=== PATIENT | male | born 1930 | race Caucasian/White ===

== ENCOUNTER → 2017-04-21 | Outpatient (CLI) | payer MEDICARE, OTHER ==
[~2017-04-21] MED LIST: ASPIRIN E.C. 8181 MG PO; CELEBREX 200MG200 MG PO; CEPHALEXIN500 M1 PO; COZAAR 50MG50 MG/TAB PO; DULCOLAX TAB5 MG PO; DYAZIDE 25 MG-31 CAP PO; FLOMAX 0.40.4 MG/CAP PO; GENTAMICIN180 MG/502 NS; MIRALAX PA17 GM/Dose PO; PRILOSEC 20MG20 MG PO; RYBIX ODT50 MG PO; SINGULAIR 110 MG/TAB PO; THEO-24 20200 MG/CAP PO; TYLENOL 325MG325 MG PO; ULTRAM 50MG TAB50 MG PO; XYZAL5 MG PO; ZOCOR 10MG10 MG PO
== END ==
LOC: COL.VAS 12:46
DX: M79.604 Pain in right leg (principal); R60.1 Generalized edema

== ENCOUNTER 2018-01-24 18:08 | Inpatient (IN) | payer MEDICARE, OTHER ==
[~2018-01-24] VITALS: Ht 167.6 cm; Wt 100.4 kg
[~2018-01-24 18:08] MED LIST changes: +BETAPACE 80MG80 MG PO; +OMNICEF 300MG300 MG PO
[2018-01-25] MEDS ORDERED: COLACE 100100 MG/CAP PO (08:17)
[2018-01-25] MEDS ORDERED: MOBIC 7.5MG7.5 MG PO (08:55)
[2018-01-25 08:59] VITALS: BP 104/55; PULSE 67; TEMP 98
[2018-01-25 09:49] LABS: BASO # 0.1 (0.0-0.2); BASO % 0.6 % (0.0-2.0); EOS # 0.6 (0.0-0.7); EOS % 6.4 % (0-4.0); GRAN # 7.5 (1.4-6.5); GRAN % 75.4 % (42.2-75.2); HEMATOCRIT 37.9 % (42.0-52.0); HEMOGLOBIN 12.4 g/dl (13.5-18.0); LYMPH # 0.9 (1.2-3.4); LYMPH % 8.6 % (20.0-51.0); MEAN CELL VOLUME 86 fl (80.0-100.0); MEAN CORPUSCULAR HEMOGLOBIN 28 pg (27.0-31.0); MEAN CORPUSCULAR HGB CONC 33 g/dl (33.0-37.0); MEAN PLATELET VOLUME 8.6 fl (7.4-10.4); MONO # 0.9 (0.1-0.6); MONO % 8.6 % (1.7-9.3); PLATELET COUNT 483 K/mm3 (130-400); RED BLOOD COUNT 4.39 M/mm3 (4.20-5.60); REDCELL DISTRIBUTION WIDTH-CV 13.9 % (11.5-14.5)
[2018-01-25 09:57] LABS: INR 1.2 (0.8-3.0); PROTHROMBIN TIME 13.3 SECONDS (9.7-12.8)
[2018-01-25 10:03] LABS: BILIRUBIN,TOTAL 0.3 mg/dL (0.0-1.0); CALCIUM 8.8 mg/dL (8.4-10.2); CREATININE, serum 0.96 mg/dL (0.66-1.25); POTASSIUM 3.4 mmol/L (3.4-5.0); TOTAL PROTEIN 6.6 gm/dL (6.4-8.2)
[2018-01-25 12:39] VITALS: BP 143/46; PULSE 64; TEMP 98.4
[2018-01-25] MEDS ORDERED: MIRAPEX0.25 MG PO (14:05)
[2018-01-25 16:50] VITALS: BP 110/54; PULSE 62; TEMP 98.3
[2018-01-25 22:25] VITALS: BP 111/56; PULSE 62; TEMP 98.2
[2018-01-26 03:32] VITALS: BP 117/57; PULSE 68; TEMP 97.9
[2018-01-26 07:12] VITALS: BP 111/76; PULSE 63; TEMP 97.4
[2018-01-26 08:53] LABS: BASO % 0.5 % (0.0-2.0); EOS # 0.7 (0.0-0.7); EOS % 7.6 % (0-4.0); GRAN # 6.7 (1.4-6.5); GRAN % 75.6 % (42.2-75.2); LYMPH # 0.7 (1.2-3.4); LYMPH % 7.6 % (20.0-51.0); MEAN CELL VOLUME 86 fl (80.0-100.0); MEAN CORPUSCULAR HEMOGLOBIN 28 pg (27.0-31.0); MEAN CORPUSCULAR HGB CONC 33 g/dl (33.0-37.0); MEAN PLATELET VOLUME 8.6 fl (7.4-10.4); MONO # 0.7 (0.1-0.6); MONO % 8.2 % (1.7-9.3); PLATELET COUNT 472 K/mm3 (130-400); RED BLOOD COUNT 4.28 M/mm3 (4.20-5.60); REDCELL DISTRIBUTION WIDTH-CV 14.1 % (11.5-14.5)
[2018-01-26 08:54] LABS: HEMATOCRIT 36.7 % (42.0-52.0)
[2018-01-26 09:07] LABS: CALCIUM 8.6 mg/dL (8.4-10.2); CREATININE, serum 0.9 mg/dL (0.66-1.25); MAGNESIUM 1.9 mg/dL (1.6-2.3); POTASSIUM 3.2 mmol/L (3.4-5.0)
[2018-01-26 11:39] VITALS: BP 126/81; PULSE 73; TEMP 98
[2018-01-26 18:23] VITALS: BP 123/58; PULSE 77; TEMP 98.1
[2018-01-26 23:31] VITALS: BP 128/51; PULSE 64
[2018-01-27 04:52] VITALS: BP 123/51; PULSE 64
[2018-01-27 08:52] LABS: BASO # 0.1 (0.0-0.2); BASO % 0.6 % (0.0-2.0); EOS # 0.8 (0.0-0.7); EOS % 9.1 % (0-4.0); GRAN # 6.1 (1.4-6.5); GRAN % 70.1 % (42.2-75.2); HEMATOCRIT 37.7 % (42.0-52.0); HEMOGLOBIN 12.1 g/dl (13.5-18.0); LYMPH % 11.3 % (20.0-51.0); MEAN CELL VOLUME 86 fl (80.0-100.0); MEAN CORPUSCULAR HEMOGLOBIN 28 pg (27.0-31.0); MEAN CORPUSCULAR HGB CONC 32 g/dl (33.0-37.0); MEAN PLATELET VOLUME 9.2 fl (7.4-10.4); MONO # 0.7 (0.1-0.6); MONO % 8.6 % (1.7-9.3); PLATELET COUNT 476 K/mm3 (130-400); RED BLOOD COUNT 4.39 M/mm3 (4.20-5.60); REDCELL DISTRIBUTION WIDTH-CV 14.2 % (11.5-14.5)
[2018-01-27 09:03] VITALS: BP 132/75; PULSE 69; TEMP 97.7
[2018-01-27 09:03] LABS: CALCIUM 8.7 mg/dL (8.4-10.2); MAGNESIUM 2.1 mg/dL (1.6-2.3); POTASSIUM 3.2 mmol/L (3.4-5.0)
[2018-01-27 13:44] VITALS: BP 107/45; PULSE 74; TEMP 97.5
[2018-01-27 19:59] VITALS: BP 113/41; PULSE 64; TEMP 98.1
[2018-01-28] VITALS (7 sets, daily range): BP systolic 111–132; BP diastolic 48–88; PULSE 59–71; TEMP 97.3–97.9
[2018-01-28 06:03] LABS: BASO # 0.1 (0.0-0.2); BASO % 0.6 % (0.0-2.0); EOS % 11.8 % (0-4.0); GRAN # 5.3 (1.4-6.5); GRAN % 63.9 % (42.2-75.2); HEMOGLOBIN 11.6 g/dl (13.5-18.0); LYMPH # 1.1 (1.2-3.4); LYMPH % 13.8 % (20.0-51.0); MEAN CELL VOLUME 86 fl (80.0-100.0); MEAN CORPUSCULAR HEMOGLOBIN 27 pg (27.0-31.0); MEAN CORPUSCULAR HGB CONC 32 g/dl (33.0-37.0); MEAN PLATELET VOLUME 8.8 fl (7.4-10.4); MONO # 0.8 (0.1-0.6); MONO % 9.5 % (1.7-9.3); PLATELET COUNT 485 K/mm3 (130-400); RED BLOOD COUNT 4.24 M/mm3 (4.20-5.60); REDCELL DISTRIBUTION WIDTH-CV 14.2 % (11.5-14.5)
[2018-01-28 06:04] LABS: HEMATOCRIT 36.4 % (42.0-52.0)
[2018-01-28 06:19] LABS: CALCIUM 8.7 mg/dL (8.4-10.2); CREATININE, serum 0.97 mg/dL (0.66-1.25); MAGNESIUM 2.3 mg/dL (1.6-2.3); POTASSIUM 3.5 mmol/L (3.4-5.0)
[2018-01-29 05:04] VITALS: BP 117/66; PULSE 65; TEMP 97.9
[2018-01-29 05:45] LABS: BASO # 0.1 (0.0-0.2); BASO % 0.8 % (0.0-2.0); EOS % 13.1 % (0-4.0); GRAN # 4.5 (1.4-6.5); GRAN % 61.1 % (42.2-75.2); HEMATOCRIT 36.8 % (42.0-52.0); LYMPH # 1.1 (1.2-3.4); LYMPH % 15.3 % (20.0-51.0); MEAN CELL VOLUME 86 fl (80.0-100.0); MEAN CORPUSCULAR HEMOGLOBIN 28 pg (27.0-31.0); MEAN CORPUSCULAR HGB CONC 33 g/dl (33.0-37.0); MEAN PLATELET VOLUME 8.7 fl (7.4-10.4); MONO # 0.7 (0.1-0.6); MONO % 9.2 % (1.7-9.3); PLATELET COUNT 497 K/mm3 (130-400); REDCELL DISTRIBUTION WIDTH-CV 14.2 % (11.5-14.5)
[2018-01-29 06:03] LABS: CALCIUM 8.8 mg/dL (8.4-10.2); CREATININE, serum 0.94 mg/dL (0.66-1.25); MAGNESIUM 2.1 mg/dL (1.6-2.3); POTASSIUM 3.4 mmol/L (3.4-5.0)
[2018-01-29 07:47] VITALS: BP 127/73; PULSE 87; TEMP 98.1
[2018-01-29] MEDS ORDERED: PACERONE200 MG PO (09:50)
== END 2018-01-29 11:15 | disposition home or self-care (01) | DRG 310 ==
LOC: MEDICAL 01-25 07:51
PROVIDERS: Internal Medicine Cardiovascular Disease
DX: I48.0 Paroxysmal atrial fibrillation (principal); I10 Essential (primary) hypertension; E78.5 Hyperlipidemia, unspecified; Z95.0 Presence of cardiac pacemaker; I05.9 Rheumatic mitral valve disease, unspecified; Z87.891 Personal history of nicotine dependence

== ENCOUNTER 2018-09-12 02:59 | Observation (INO) | payer MEDICARE, OTHER ==
[~2018-09-12] VITALS: Ht 167.6 cm; Wt 86.5 kg
[~2018-09-12 02:59] MED LIST changes: +COLACE 100100 MG/CAP PO; +MIRAPEX0.25 MG PO; +MOBIC 7.5MG7.5 MG PO; +PACERONE200 MG PO
[2018-09-12 03:20] LABS: BASO % 0.3 % (0.0-2.0); EOS # 0.3 (0.0-0.7); EOS % 2.1 % (0-4.0); GRAN % 81.5 % (42.2-75.2); HEMATOCRIT 40.6 % (42.0-52.0); HEMOGLOBIN 13.1 g/dl (13.5-18.0); LYMPH % 7.5 % (20.0-51.0); MEAN CELL VOLUME 86 fl (80.0-100.0); MEAN CORPUSCULAR HEMOGLOBIN 28 pg (27.0-31.0); MEAN CORPUSCULAR HGB CONC 32 g/dl (33.0-37.0); MEAN PLATELET VOLUME 9.3 fl (7.4-10.4); MONO # 1.1 (0.1-0.6); MONO % 8.3 % (1.7-9.3); PLATELET COUNT 322 K/mm3 (130-400); RED BLOOD COUNT 4.75 M/mm3 (4.20-5.60); REDCELL DISTRIBUTION WIDTH-CV 15.7 % (11.5-14.5)
[2018-09-12 03:33] LABS: ALBUMIN 4.3 gm/dL (3.5-5.0); BILIRUBIN,TOTAL 0.7 mg/dL (0.0-1.0); C-REACTIVE PROTEIN 2.2 mg/dL (0.0-0.9); CALCIUM 9.9 mg/dL (8.4-10.2); CREATININE, serum 1.12 (0.66-1.25); MAGNESIUM 2.2 mg/dL (1.6-2.3); POTASSIUM 3.5 mmol/L (3.4-5.0); TOTAL PROTEIN 7.8 gm/dL (6.4-8.2)
[2018-09-12 04:37] LABS: COLLECTION METHOD CLEAN CATCH
[2018-09-12 04:42] LABS: PH 9 (5-8); SQUAMOUS EPITHELIAL None Seen /hpf; URINE APPEARANCE Hazy; URINE BACTERIA None Seen /hpf; URINE BILIRUBIN Negative (NEGATIVE); URINE BLOOD Negative (NEGATIVE); URINE COLOR Yellow; URINE GLUCOSE Negative (NEGATIVE); URINE KETONE Negative (NEGATIVE); URINE LEUKOCYTE ESTERASE Negative (NEGATIVE); URINE NITRATE Negative (NEGATIVE); URINE PROTEIN(semi-quant) 1+ (NEGATIVE); URINE RBC 0-2 /hpf; URINE UROBILINOGEN Negative (NEGATIVE)
[2018-09-12 08:38] VITALS: BP 112/69; PULSE 66; TEMP 97.4
[2018-09-12] MEDS ORDERED: NORCO 325 MG-51 TAB PO (10:59)
--- NOTE | 2018-09-12 11:00 | NUR ---
Patient has been having bowel movements since arriving to floor. He started with soft formed and is now having loose stools. He denies pain or nausea. Patient is hoping to discharge later today. He stated he is feeling much better. Patient stated that Dr Jung increased his norco. Explained the importance of using stool softners with the norco at home to keep from getting constipated. Patient verbalized understanding. No other changes at this time. Call light within reach.
[2018-09-12 11:39] VITALS: BP 141/77; PULSE 64; TEMP 97.7
--- NOTE | 2018-09-12 14:18 | NUR ---
Initial visit; Patient likes to reminisce and is a devout [employer] reader and follower of [employer], along with his of over fifty years.
--- NOTE | 2018-09-12 14:20 | NUR ---
Patient is discharging home. Discharge instructions discussed with patient and his . No questions verbalized. Patient continues to have small loose bowel movents. No complaints of pain or nausea. Copies of discharge instructions sent with patient. Explained to only see Dr Castillo as needed but Dr Randhawa wanted him to continue with his follow up with Dr Randhawa. Patients belongings packed up and sent with patient. Patient walked out via wheel chair by Kassie.
--- NOTE | 2018-09-12 14:38 | NUR ---
SW unable to meet with patient before discharge.
[2018-09-14] MEDS ORDERED: K-DUR 10 MEQ T10 MEQ PO (08:10)
[2018-09-14] MEDS ORDERED: LASIX 20MG TABL20 MG PO (08:11)
[2018-09-14] MEDS ORDERED: ZYLOPRIM 300MG300 MG PO (08:11)
== END 2018-09-12 14:20 | disposition home or self-care (01) ==
LOC: COL.ER 02:59 → SURG 06:37
PROVIDERS: Emergency Medicine; ADMIT Surgery
DX: K56.600 Partial intestinal obstruction, unspecified as to cause (principal); L03.119 Cellulitis of unspecified part of limb; R60.0 Localized edema; I48.91 Unspecified atrial fibrillation; Z95.0 Presence of cardiac pacemaker; Z79.82 Long term (current) use of aspirin; Z79.899 Other long term (current) drug therapy; Z87.891 Personal history of nicotine dependence; R00.1 Bradycardia, unspecified; Z96.653 Presence of artificial knee joint, bilateral; J98.4 Other disorders of lung
CPT/HCPCS: G0378; J1170; J2405; J7030; Q9967

== ENCOUNTER 2018-09-18 08:33 | Outpatient (CLI) | payer MEDICARE, OTHER ==
--- NOTE | 2018-09-14 08:31 | NUR ---
PT TO BRING MED LIST FOR CLARIFICATION
[~2018-09-18] VITALS: Ht 167.6 cm; Wt 107.0 kg
[2018-09-18] VITALS (10 sets, daily range): BP systolic 115–150; BP diastolic 63–86; PULSE 60–81
[~2018-09-18 08:33] MED LIST changes: +K-DUR 10 MEQ T10 MEQ PO; +LASIX 20MG TABL20 MG PO; +NORCO 325 MG-51 TAB PO; +ZYLOPRIM 300MG300 MG PO
[2018-09-18] MEDS ORDERED: XYZAL5 MG PO (09:07)
[2018-09-18] MEDS ORDERED: DYAZIDE 25 MG-31 CAP PO (09:09)
[2018-09-18 10:37] LABS: CREATININE, serum 1.17 (0.66-1.25)
--- NOTE | 2018-09-18 12:33 | NUR ---
Discharge instructions given to pt.pt verbalizes understanding.
--- NOTE | 2018-09-18 12:45 | NUR ---
Pt escorted out via wheelchair y this nurse.
== END 2018-09-18 13:41 | disposition home or self-care (01) ==
LOC: COL.RAD 08:33
PROVIDERS: Orthopaedic Surgery
DX: M51.36 Other intervertebral disc degeneration, lumbar region (principal); M48.07 Spinal stenosis, lumbosacral region
CPT/HCPCS: Q9965

== ENCOUNTER 2020-03-27 10:00 | Outpatient (RCR) | payer MEDICARE ==
[2020-03-20 10:33] VITALS: BP 149/83; PULSE 68; TEMP 98.3
[~2020-03-27] VITALS: Ht 167.6 cm; Wt 116.7 kg
[2020-03-27 09:29] VITALS: BP 138/71; PULSE 83; TEMP 98.2
[~2020-03-27 10:00] MED LIST changes: +DEMADEX100 MG PO; -LASIX 20MG TABL20 MG PO; +PREDNISONE10 MG PO
--- NOTE | 2020-03-27 10:40 | NUR ---
IV DC'd with catheter intact. Pt tolerated infusion without issue. Pt ambulates out from dept with his walker.
== END 2020-03-27 10:40 | disposition still patient (30) ==
LOC: EUO 10:00
DX: D50.9 Iron deficiency anemia, unspecified (principal)
CPT/HCPCS: J2916

== ENCOUNTER 2020-12-09 14:15 | Outpatient (RCR) | payer MEDICARE | END 2021-01-06 14:25 | disposition home or self-care (01) | LOC: WSPT 14:15 | DX: I89.0 Lymphedema, not elsewhere classified (principal) ==

== ENCOUNTER → 2021-05-01 | Outpatient (CLI) | payer MEDICARE | LOC: COL.RAD 04-24 09:45 | DX: R94.5 Abnormal results of liver function studies (principal) ==

== ENCOUNTER 2021-06-25 16:35 | Emergency (ER) | payer MEDICARE ==
[~2021-06-25] VITALS: Ht 160 cm; Wt 100.0 kg
[2021-06-25 17:07] VITALS: TEMP 97.6
[2021-06-25 18:55] VITALS: BP 134/76; PULSE 70
== END 2021-06-25 18:55 | disposition home or self-care (01) ==
LOC: COL.ER 16:35
DX: S41.111A Laceration without foreign body of right upper arm, initial encounter (principal); Z87.891 Personal history of nicotine dependence; W22.01XA Walked into wall, initial encounter